=== PATIENT | male | born 1960 | race Caucasian/White ===

== ENCOUNTER 2019-03-14 06:23 | Observation (INO) | payer BC, OTHER ==
[~2019-03-14] VITALS: Ht 185.4 cm; Wt 98.7 kg
--- NOTE | 2019-03-14 06:47 | ED Cardiac General ---
History of Present Illness General Chief Complaint: Cardiac/General Problems Stated Complaint: HEART PALPATATIONS Source: patient Exam Limitations: no limitations History of Present Illness Date Seen by Provider: Mar 14, 2019 Time Seen by Provider: 06:44 Initial Comments Patient complains rapid irregular heart rate for the past 9 hours. He denies chest pain or shortness of breath. He has a history of similar symptoms when he used to smoke but quit smoking years ago. He denies stimulant use. No fevers or chills. Allergies and Home Medications Allergies Coded Allergies: No Known Drug Allergies (Unverified , 03/14/19) Home Medications Cholecalciferol (Vitamin D3) 1,000 Unit Capsule, 1,000 UNIT PO DAILY, (Reported) Naproxen Sodium 220 Mg Tablet, 220 MG PO Q8H PRN for PAIN-MILD, (Reported) Patient Home Medication List Home Medication List Reviewed: Yes Review of Systems Review of Systems Constitutional: no symptoms reported Respiratory: No Symptoms Reported Cardiovascular: Irregular Heart Rate, Palpitations Gastrointestinal: No Symptoms Reported Musculoskeletal: no symptoms reported All Other Systems Reviewed Negative Unless Noted: Yes Past Euykvxg-Jijaud-Raueqn Hx Patient Social History Alcohol Use: Denies Use Recreational Drug Use: No Smoking Status: Former Smoker Recent Foreign Travel: No Contact w/Someone Who Travel: No Physical Exam Vital Signs Vital Signs - First Documented 03/14/19 03/14/19 06:40 06:41 Temp 98.0 Pulse 137 Resp 15 B/P (MAP) 158/104 (122) Pulse Ox 100 O2 Delivery Nasal Cannula O2 Flow Rate 2.00 Capillary Refill : Height, Weight, BMI Height: '" Weight: lbs. oz. kg; BMI Method: General Appearance: No Apparent Distress, WD/WN HEENT: PERRL/EOMI, Normal ENT Inspection Neck: Supple Respiratory: Lungs Clear, Normal Breath Sounds Cardiovascular: No Edema, Tachycardia Gastrointestinal: Non Tender, Soft Extremity: Normal Inspection, Normal Range of Motion, No Calf Tenderness, No Pedal Edema Neurologic/Psychiatric: Alert, No Motor/Sensory Deficits, Normal Mood/Affect Skin: Normal Color, Warm/Dry Progress/Results/Core Measures Results/Orders Lab Results Laboratory Tests Test 03/14/19 06:40 03/14/19 07:30 Range/Units White Blood Count 5.4 4.3-11.0 10^3/uL Red Blood Count 5.57 4.35-5.85 10^6/uL Hemoglobin 16.7 13.3-17.7 G/DL Hematocrit 52 40-54 % Mean Corpuscular Volume 93 80-99 FL Mean Corpuscular Hemoglobin 30 25-34 PG Mean Corpuscular Hemoglobin Concent 33 32-36 G/DL Red Cell Distribution Width 13.0 10.0-14.5 % Platelet Count 149 130-400 10^3/uL Mean Platelet Volume 12.8 H 7.4-10.4 FL Neutrophils (%) (Auto) 44 42-75 % Lymphocytes (%) (Auto) 45 H 12-44 % Monocytes (%) (Auto) 9 0-12 % Eosinophils (%) (Auto) 1 0-10 % Basophils (%) (Auto) 1 0-10 % Neutrophils # (Auto) 2.4 1.8-7.8 X 10^3 Lymphocytes # (Auto) 2.4 1.0-4.0 X 10^3 Monocytes # (Auto) 0.5 0.0-1.0 X 10^3 Eosinophils # (Auto) 0.1 0.0-0.3 10^3/uL Basophils # (Auto) 0.1 0.0-0.1 10^3/uL Prothrombin Time 12.8 12.2-14.7 SEC INR Comment 0.9 0.8-1.4 Activated Partial Thromboplast Time 27 24-35 SEC D-Dimer < 0.27 0.00-0.49 UG/ML Sodium Level 143 135-145 MMOL/L Potassium Level 3.9 3.6-5.0 MMOL/L Chloride Level 101 98-107 MMOL/L Carbon Dioxide Level 26 21-32 MMOL/L Anion Gap 16 H 5-14 MMOL/L Blood Urea Nitrogen 18 7-18 MG/DL Creatinine 1.12 0.60-1.30 MG/DL Estimat Glomerular Filtration Rate > 60 BUN/Creatinine Ratio 16 Glucose Level 113 H 70-105 MG/DL Calcium Level 9.2 8.5-10.1 MG/DL Corrected Calcium 9.0 8.5-10.1 MG/DL Magnesium Level 2.1 1.8-2.4 MG/DL Total Bilirubin 1.1 H 0.1-1.0 MG/DL Aspartate Amino Transf (AST/SGOT) 14 5-34 U/L Alanine Aminotransferase (ALT/SGPT) 20 0-55 U/L Alkaline Phosphatase 49 40-136 U/L Troponin T 9 <=15 NG/L Total Protein 7.4 6.4-8.2 GM/DL Albumin 4.2 3.2-4.5 GM/DL Urine Opiates Screen NEGATIVE NEGATIVE Urine Oxycodone Screen NEGATIVE NEGATIVE Urine Methadone Screen NEGATIVE NEGATIVE Urine Propoxyphene Screen NEGATIVE NEGATIVE Urine Barbiturates Screen NEGATIVE NEGATIVE Ur Tricyclic Antidepressants Screen NEGATIVE NEGATIVE Urine Phencyclidine Screen NEGATIVE NEGATIVE Urine Amphetamines Screen NEGATIVE NEGATIVE Urine Methamphetamines Screen NEGATIVE NEGATIVE Urine Benzodiazepines Screen NEGATIVE NEGATIVE Urine Cocaine Screen NEGATIVE NEGATIVE Urine Cannabinoids Screen NEGATIVE NEGATIVE My Orders Orders - JIGAR RAI MD Cbc With Automated Diff (03/14/19 06:37) Magnesium (03/14/19 06:37) Chest 1 View Ap/Pa Only (03/14/19 06:37) Ekg Tracing (03/14/19 06:37) Comprehensive Metabolic Panel (03/14/19 06:37) Protime With Inr (03/14/19 06:37) Partial Thromboplastin Time (03/14/19 06:37) O2 (03/14/19 06:37) Monitor-Rhythm Ecg Trace Only (03/14/19 06:37) Ed Iv/Invasive Line Start (03/14/19 06:37) Troponin T (03/14/19 06:37) Fibrin Degradation Products (03/14/19 06:37) Drug Screen Stat (Urine) (03/14/19 06:37) Metoprolol Tartrate Injection (Lopressor (03/14/19 07:30) Metoprolol Tartrate Injection (Lopressor (03/14/19 07:30) Ns (Ivpb) (Sodium C... W/Diltiazem Iv Fo (03/14/19 07:45) Diltiazem Injection (Cardizem Injection) (03/14/19 07:45) Enoxaparin Injection (Lovenox Injection) (03/14/19 07:45) Thyroid Stimulating Hormone (03/14/19 08:09) Ekg Tracing (03/14/19 08:15) Medications Given in ED Current Medications Medications Dose Ordered Sig/Cecilia Route Start Time Stop Time Status Last Admin Dose Admin Enoxaparin Sodium 95 mg ONCE ONCE SC 03/14/19 07:45 03/14/19 07:46 DC 03/14/19 08:10 95 MG Metoprolol Tartrate 10 mg ONCE ONCE IV 03/14/19 07:30 03/14/19 07:31 DC 03/14/19 07:31 10 MG Vital Signs/I&O 03/14/19 03/14/19 06:40 06:41 Temp 98.0 Pulse 137 Resp 15 B/P (MAP) 158/104 (122) Pulse Ox 100 100 O2 Delivery Nasal Cannula Nasal Cannula O2 Flow Rate 2.00 2.00 Progress Progress Note : Time: 07:52 Progress Note Patient's heart rate down into the 90s after 10 mg Lopressor IV. We'll start C ardizem drip and Lovenox. This was discussed with Dr. Thakur and Dr. Silva who agreed to accept the patient at [facility]. EKG : EKG Time: 06:31 Rate: 137 Rhythm: A Fib/Flutter Intervals: Normal ECG Comparisson: No Previous ECG Available ECG Impression: Nonspecific Changes, Atrial Fibrillation, Atrial Fibrillation w/RVR Consults : Consulting Physician: MICHELLE THAKUR MD Consults Notes Agrees with Cardizem drip and Lovenox. Transfer to monitored bed at [facility] Departure Communication (Admissions) Time/Spoke to Admitting Phy: 07:[address] Silva who agrees to admit Patient converted to sinus rhythm at a rate is 60 after IV Lopressor. Cardizem drip was held. Lovenox was given. Transfer for cardiology care. Impression Primary Impression: Atrial fibrillation Additional Impression: tachycardia Disposition: 09 ADMITTED INPATIENT Condition: Stable Admissions Decision to Admit Reason: Admit from ER (General) Decision to Admit/Date: Mar 14, 2019 Time/Decision to Admit Time: 07:50 Departure-Patient Inst. Referrals: NO,LOCAL PHYSICIAN (PCP) Primary Care Physician JIGAR RAI MD Mar 14, 2019 06:47
--- NOTE | 2019-03-14 06:59 | Diagnostic Imaging Report ---
Patient History: Heart palpitations, tachycardia. Technique: Single frontal view of the chest Comparison: None FINDINGS: The lung volumes are normal. No focal consolidation is seen. No large pleural effusion or pneumothorax is seen. The cardiomediastinal silhouette is normal in size and contour. No acute osseous abnormality is seen. IMPRESSION: No acute pulmonary abnormality seen. Dictated by: Dictated on workstation # [id number]
[2019-03-14 07:06] LABS: HEMATOCRIT 52 % (40-54); HEMOGLOBIN 16.7 G/DL (13.3-17.7); MEAN CORPUSCULAR HEMOGLOBIN 30 PG (25-34); MEAN CORPUSCULAR HGB CONC 33 G/DL (32-36); MEAN CORPUSCULAR VOLUME 93 FL (80-99); MEAN PLATELET VOLUME 12.8 FL (7.4-10.4); PLATELET COUNT 149 10^3/uL (130-400); WHITE BLOOD COUNT 5.4 10^3/uL (4.3-11.0)
[2019-03-14 07:07] LABS: BASOPHILS # (AUTO) 0.1 10^3/uL (0.0-0.1); BASOPHILS % (AUTO) 1 % (0-10); EOSINOPHILS # (AUTO) 0.1 10^3/uL (0.0-0.3); EOSINOPHILS % (AUTO) 1 % (0-10); LYMPHOCYTES # (AUTO) 2.4 X 10^3 (1.0-4.0); LYMPHOCYTES % (AUTO) 45 % (12-44); MONOCYTES # (AUTO) 0.5 X 10^3 (0.0-1.0); MONOCYTES % (AUTO) 9 % (0-12); NEUTROPHILS # (AUTO) 2.4 X 10^3 (1.8-7.8); NEUTROPHILS % (AUTO) 44 % (42-75)
[2019-03-14 07:17] LABS: INR 0.9 (0.8-1.4); PROTHROMBIN TIME PATIENT 12.8 SEC (12.2-14.7)
[2019-03-14 07:26] LABS: ALANINE AMINOTRANSFERASE 20 U/L (0-55); ALKALINE PHOSPHATASE 49 U/L (40-136); BILIRUBIN,TOTAL 1.1 MG/DL (0.1-1.0); BUN/CREATININE RATIO 16; CALCIUM 9.2 MG/DL (8.5-10.1); CARBON DIOXIDE 26 MMOL/L (21-32); CHLORIDE 101 MMOL/L (98-107); CREATININE SERUM 1.12 MG/DL (0.60-1.30); GFR ESTIMATED > 60; GLUCOSE 113 MG/DL (70-105); MAGNESIUM 2.1 MG/DL (1.8-2.4); POTASSIUM 3.9 MMOL/L (3.6-5.0); SODIUM 143 MMOL/L (135-145)
[2019-03-14 07:27] LABS: ALBUMIN 4.2 GM/DL (3.2-4.5); TOTAL PROTEIN 7.4 GM/DL (6.4-8.2)
[2019-03-14] MEDS ORDERED: meTOprolol 5 MG/5 ML (LOPRESSOR) VIAL IV ONE ×2 (07:30)
[2019-03-14] MEDS ORDERED: ENOXAPARIN 100 MG/1 ML (LOVENOX) SYR SC ONE (07:45)
[2019-03-14] MEDS ORDERED: DILTIAZEM 25 MG/5 ML INJ (CARDIZEM) VIAL IVP ONE (07:45)
[2019-03-14] MEDS ORDERED: DILTIAZEM IV FOR DRIP 125 MG in NS (IVPB) 100 ML IV SCH (07:45)
[2019-03-14 07:46] LABS: AMPHETAMINE SCREEN, URINE NEGATIVE (NEGATIVE); BARBITURATE SCREEN URINE NEGATIVE (NEGATIVE); BENZODIAZEPINES SCREEN URINE NEGATIVE (NEGATIVE); CANNABINOID SCREEN, URINE NEGATIVE (NEGATIVE); COCAINE SCREEN URINE NEGATIVE (NEGATIVE); METHADONE STAT NEGATIVE (NEGATIVE); METHAMPHETAMINE SCREEN URINE S NEGATIVE (NEGATIVE); OPIATE SCREEN URINE NEGATIVE (NEGATIVE); OXYCODONE STAT NEGATIVE (NEGATIVE); PROPOXYPHENE STAT NEGATIVE (NEGATIVE); TRICYCLIC ANTIDEPRESSANTS SCRE NEGATIVE (NEGATIVE)
[2019-03-14 10:15] VITALS: BP 147/103
[2019-03-14 11:00] VITALS: BP 140/94
[2019-03-14] MEDS ORDERED: CATHETER FLUSH 10 ML SYR IV PRN (11:00)
[2019-03-14] MEDS ORDERED: CHOL10007 PO (11:18)
[2019-03-14] MEDS ORDERED: NAPR220T66 PO (11:18)
--- NOTE | 2019-03-14 11:18 | NUR ---
SPOKE WITH THE PATIENT ABOUT HIS MEDICATIONS. HE STATES HE NORMALLY DOES NOT TAKE ANYTHING. HE TOOK VITAMIN D YESTERDAY AND HAD PLANNED TO START TAKING IT DAILY DUE TO LEG CRAMPING HE HAS BEEN HAVING WHILE MOWING, HE WAS TOLD VITAMIN D MIGHT HELP THAT. HE TAKES AN OCCASIONAL OTC HEADACHE MEDICATION, USUALLY HE STATES IT IS ALEVE. HE ONLY TAKES ONE TABLET AT A TIME.
--- NOTE | 2019-03-14 11:27 | History & Physical-Hospitalist ---
History of Present Illness HPI/Chief Complaint Chief complaint: New onset atrial fibrillation with rapid ventricular response History of present illness: This is a 59-year-old white male that is very healthy who previously saw Dr. Sergio Souza is his primary care provider but had yet to establish with a new one since he retired 2 years ago who presented to [facility] after feeling palpitations since 10 o'clock last night. Patient was found to have new onset atrial fibrillation with rapid ventricular response of 140 heart rate. He was placed on Cardizem drip which resulted in conversion to sinus rhythm and heart rate is 64. Cardiology will be consulted and will have a full evaluation and management deemed necessary for cardiology expertise. Source: patient Exam Limitations: no limitations Date Seen 03/14/19 Time Seen by a Provider: 10:30 Attending Physician Chely Knutson DO PCP No,Local Physician Referring Physician MICHELLE SHAW MD Date of Admission Mar 14, 2019 at 08:30 Home Medications & Allergies Home Medications Reviewed patient Home Medication Reconciliation performed by pharmacy medication reconciliations fiberglass technician and/or nursing. Patients Allergies have been reviewed. Allergies Allergies Coded Allergies No Known Drug Allergies (Unverified03/14/19) Past Tbtnkpr-Nnruiw-Qbeucu Hx Past Med/Social Hx: Reviewed Nursing Past Med/Soc Hx, Reviewed and Corrections made Patient Social History Marrital Status: Employed/Student: employed ([employer]) Alcohol Use: Denies Use Recreational Drug Use: No Smoking Status: Current Everyday Smoker Type Used: Electronic/Vapor 2nd Hand Smoke Exposure: No Recent Foreign Travel: No Contact w/other who traveled: No Recent Hopitalizations: No Recent Infectious Disease Expo: No Seasonal Allergies Seasonal Allergies: No Past Medical History Cardiac: Palpitations Family History Cardiovascular disease G8 BROTHER, Onset:30's - 40 19 FATHER, Onset:40's - 50 Myocardial infarction G8 BROTHER, Onset:30's - 40 19 FATHER, Onset:40's - 50 Review of Systems Constitutional: see HPI EENTM: no symptoms reported Respiratory: short of breath Cardiovascular: palpitations Psychiatric/Neurological: See HPI All Other Systems Reviewed Negative Unless Noted: Yes Physical Exam Physical Exam Vital Signs Vital Signs - First Documented 03/14/19 03/14/19 06:40 06:41 Temp 98.0 Pulse 137 Resp 15 B/P (MAP) 158/104 (122) Pulse Ox 100 O2 Delivery Nasal Cannula O2 Flow Rate 2.00 Capillary Refill : Less Than 3 SecondsLess Than 3 Seconds Height, Weight, BMI Height: 6'1.00" Weight: 217lbs. 8.0oz. [id number]; 28.7 BMI Method:Stated General Appearance: No Apparent Distress Eyes: Right Eye Normal Inspection, Right Eye PERRL HEENT: PERRL/EOMI, TMs Normal, Normal ENT Inspection, Pharynx Normal, Moist Mucous Membranes Neck: Full Range of Motion, Normal Inspection, Non Tender Respiratory: Chest Non Tender, Lungs Clear, Normal Breath Sounds, No Accessory Muscle Use, No Respiratory Distress Cardiovascular: Regular Rate, Rhythm, No Edema, No Gallop, No JVD, No Murmur, Normal Peripheral Pulses Gastrointestinal: Normal Bowel Sounds, No Organomegaly, No Pulsatile Mass, Non Tender, Soft Back: Normal Inspection, No CVA Tenderness, No Vertebral Tenderness Extremity: Normal Capillary Refill, Normal Inspection, Normal Range of Motion, Non Tender, No Calf Tenderness, No Pedal Edema Neurologic/Psychiatric: Alert, Oriented x3, No Motor/Sensory Deficits, Normal Mood/Affect Skin: Normal Color, Warm/Dry Lymphatic: No Adenopathy Results Results/Procedures Labs Laboratory Tests 03/14/19 06:40 Patient resulted labs reviewed. Assessment/Plan Admission Diagnosis Assessment: New onset atrial fibrillation with rapid ventricular response Smoker Plan: Cardiology expertise is appreciated Admission Status: Observation Diagnosis/Problems Diagnosis/Problems (1) Atrial fibrillation Status: Acute Qualifiers: Atrial fibrillation type: unspecified Qualified Codes: I48.91 - Unspecifie d atrial fibrillation CHELY KNUTSON DO Mar 14, 2019 11:27
[2019-03-14 12:00] VITALS: BP 127/94
[2019-03-14 12:30] VITALS: BP 136/90
[2019-03-14] MEDS ORDERED: CATHETER FLUSH 10 ML SYR IV SCH (14:00)
[2019-03-14] MEDS ORDERED: APIXABAN 5 MG (ELIQUIS) TABLET PO NR (14:00)
--- NOTE | 2019-03-14 14:02 | Short Stay Summary ---
History of Present Illness History of Present Illness Reason for visit/HPI 59 years old gentleman with no significant past history started to have palpitation around 10 p.m. yesterday, waited overnight and went to the emergency room around 6 in the morning, noted to be in atrial fibrillation with rapid ventricular response, currently in sinus rhythm, converted after receiving Cardizem. Denied any active chest pain. No syncope or near syncopal episodes. No claudications, no similar episodes in the past Date of Admission Mar 14, 2019 at 08:30 Date of Discharge March 14, 2019 Time Seen by Provider: 14:00 Attending Physician Chely Silva DO Admitting Physician Jennifer,Local Physician Consult MICHELLE SHAW MD Allergies and Home Medications Allergies Coded Allergies: No Known Drug Allergies (Unverified , 03/14/19) Home Medications Cholecalciferol (Vitamin D3) 1,000 Unit Capsule, 1,000 UNIT PO DAILY, (Reported) Naproxen Sodium 220 Mg Tablet, 220 MG PO Q8H PRN for PAIN-MILD, (Reported) Patient Home Medication List Home Medication List Reviewed: Yes Past Zohxsqp-Ystgrx-Hfcpgu Hx Patient Social History Marrital Status: Employed/Student: employed ([employer]) Alcohol Use: Denies Use Recreational Drug Use: No Smoking Status: Current Everyday Smoker Type Used: Electronic/Vapor 2nd Hand Smoke Exposure: No Recent Foreign Travel: No Contact w/other who traveled: No Recent Hopitalizations: No Recent Infectious Disease Expo: No Seasonal Allergies Seasonal Allergies: No Surgeries No Respiratory No Cardiovascular Yes Palpitations Neurological No Genitourinary No Gastrointestinal No Musculoskeletal No Endocrine History of Endocrine Disorders: No HEENT History of HEENT Disorders: No Cancer No Psychosocial History of Psychiatric Problem: No Integumentary History of Skin or Integumenta: No Family Medical History Family Hx: Cardiovascular disease G8 BROTHER, Onset:30s - 19 FATHER, Onset:40's - 50 Myocardial infarction G8 BROTHER, Onset:30s - 40 19 FATHER, Onset:40's - 50 Review of Systems Constitutional: see HPI EENTM: see HPI Respiratory: see HPI; No cough, No dyspnea on exertion, No hemoptysis, No orthopnea, No phlegm, No short of breath, No stridor, No wheezing, No other Cardiovascular: see HPI; No chest pain, No edema, No Hx of Intervention; palpitations; No syncope, No vascular heart diseas, No other Gastrointestinal: see HPI Genitourinary: see HPI Musculoskeletal: see HPI Skin: see HPI Psychiatric/Neurological: No Symptoms Reported, See HPI Physical Exam Vital Signs Vital Signs - First Documented 03/14/19 03/14/19 06:40 06:41 Temp 98.0 Pulse 137 Resp 15 B/P (MAP) 158/104 (122) Pulse Ox 100 O2 Delivery Nasal Cannula O2 Flow Rate 2.00 Capillary Refill : Less Than 3 SecondsLess Than 3 Seconds Height, Weight, BMI Height: 6'1.00" Weight: 217lbs. 8.0oz. 98.140602ci; 28.7 BMI Method:Stated General Appearance: No Apparent Distress, WD/WN Eyes: Bilateral Eye Normal Inspection, Bilateral Eye PERRL, Bilateral Eye EOMI HEENT: PERRL/EOMI, TMs Normal, Normal ENT Inspection, Pharynx Normal Neck: Full Range of Motion, Normal Inspection, Non Tender, Supple, Carotid Bruit Respiratory: Chest Non Tender, Lungs Clear, Normal Breath Sounds, No Accessory Muscle Use, No Respiratory Distress Cardiovascular: Regular Rate, Rhythm, No Edema, No Gallop, No JVD, No Murmur, Normal Peripheral Pulses Gastrointestinal: Normal Bowel Sounds, No Organomegaly, No Pulsatile Mass, Non Tender, Soft Back: Normal Inspection, No CVA Tenderness, No Vertebral Tenderness Extremity: Normal Capillary Refill, Normal Inspection, Normal Range of Motion, Non Tender, No Calf Tenderness, No Pedal Edema Neurologic/Psychiatric: Alert, Oriented x3, No Motor/Sensory Deficits, Normal Mood/Affect Skin: Normal Color, Warm/Dry Lymphatic: No Adenopathy Short Stay Diagnosis Discharge Diagnosis-Short Stay Admission Diagnosis: paroxysmal atrial fibrillation Tachycardia Hypertension Tobaccoism Final Discharge Diagnosis: paroxysmal atrial fibrillation Tachycardia Hypertension Tobaccoism Conclusion Labs Laboratory Tests 03/14/19 06:40: White Blood Count 5.4, Red Blood Count 5.57, Hemoglobin 16.7, Hematocrit 52, Mean Corpuscular Volume 93, Mean Corpuscular Hemoglobin 30, Mean Corpuscular Hemoglobin Concent 33, Red Cell Distribution Width 13.0, Platelet Count 149, Mean Platelet Volume 12.8H, Neutrophils (%) (Auto) 44, Lymphocytes (%) (Auto) 45H, Monocytes (%) (Auto) 9, Eosinophils (%) (Auto) 1, Basophils (%) (Auto) 1, Neutrophils # (Auto) 2.4, Lymphocytes # (Auto) 2.4, Monocytes # (Auto) 0.5, Eosinophils # (Auto) 0.1, Basophils # (Auto) 0.1, Prothrombin Time 12.8, INR Comment 0.9, Activated Partial Thromboplast Time 27, D-Dimer < 0.27, Sodium Level 143, Potassium Level 3.9, Chloride Level 101, Carbon Dioxide Level 26, Anion Gap 16H, Blood Urea Nitrogen 18, Creatinine 1.12, Estimat Glomerular Filtration Rate > 60, BUN/Creatinine Ratio 16, Glucose Level 113H, Calcium Level 9.2, Corrected Calcium 9.0, Magnesium Level 2.1, Total Bilirubin 1.1H, Aspartate Amino Transf (AST/SGOT) 14, Alanine Aminotransferase (ALT/SGPT) 20, Alkaline Phosphatase 49, Troponin T 9, Total Protein 7.4, Albumin 4.2 03/14/19 07:30: Urine Opiates Screen NEGATIVE, Urine Oxycodone Screen NEGATIVE, Urine Methadone Screen NEGATIVE, Urine Propoxyphene Screen NEGATIVE, Urine Barbiturates Screen NEGATIVE, Ur Tricyclic Antidepressants Screen NEGATIVE, Urine Phencyclidine Screen NEGATIVE, Urine Amphetamines Screen NEGATIVE, Urine Methamphetamines Screen NEGATIVE, Urine Benzodiazepines Screen NEGATIVE, Urine Cocaine Screen NEGATIVE, Urine Cannabinoids Screen NEGATIVE Conclusion/Plan paroxysmal atrial fibrillation with tachycardia, converted to sinus rhythm after receiving Cardizem, currently in sinus rhythm. Asymptomatic, no similar epi sodes in the past. Noted to be hypertensive which put him at slightly higher risk of thromboembolism. I will start him on Eliquis and beta blockers and monitor tolerance and response Hypertension, patient will be started on Toprol-XL 25 mg daily and we'll arrange for follow-up as an outpatient Tobaccoism, educated on smoking cessation MICHELLE SHAW MD Mar 14, 2019 14:02
[2019-03-14] MEDS ORDERED: METO-351 PO (14:03)
[2019-03-14] MEDS ORDERED: APIX5TAB PO (14:03)
== END 2019-03-14 14:30 | disposition home or self-care (01) ==
LOC: ER FS 06:27 → ICU 08:30
PROVIDERS: ADMIT Internal Medicine; ATTEND Internal Medicine
DX: I48.0 Paroxysmal atrial fibrillation (principal); I10 Essential (primary) hypertension; R00.2 Palpitations; F17.290 Nicotine dependence, other tobacco product, uncomplicated; Z79.899 Other long term (current) drug therapy
CPT/HCPCS: 36415; 71045; 80053; 80306; 83735; 84443; 84484; 85025; 85379; 85610; 85730; 93005; 93041; 93306; 96372; 96374

== ENCOUNTER → 2019-05-07 | Outpatient (CLI) | payer BC ==
[~2019-05-07] VITALS: Ht 185.4 cm; Wt 103.9 kg
[~2019-05-07] MED LIST: APIX5TAB PO; CATHETER FLUSH 10 ML SYR IV PRN; CHOL10007 PO; METO-351 PO; NAPR220T66 PO
[2019-05-07 14:31] VITALS: BP 175/98
--- NOTE | 2019-05-08 00:35 | STRESS TEST ---
DATE OF SERVICE: 05/07/2019 EXERCISE MYOVIEW STRESS TEST REPORT REFERRING PHYSICIAN: BRENDA Pringle Baseline heart rate is 51. Baseline blood pressure 149/83. Baseline EKG is sinus rhythm with no ischemic changes. In summary, the patient was injected with 9.06 mCi of technetium-99 Myoview and the resting images were obtained. Then, the patient started exercising with a baseline heart rate, blood pressure and EKG mentioned above. The patient was able to exercise for a total of 10 minutes and 30 seconds on standard Tao protocol. With peak exercise level, EKG was showing [address] depression in II, III, aVF, V4, V5 and V6. Blood pressure was 199/97 reaching a peak level of 228/108. During recovery, heart rate and blood pressure returned to baseline. EKG returned to baseline. The resting and stress images were reviewed and compared in the short axis, horizontal long axis, and vertical long axis views. Review of the images showed good radiotracer uptake with no significant ischemia or infarction. SSS is 4, SDS 2, TID value 0.9. On the gated images, the left ventricle appeared to be in normal size with normal contractility. Calculated ejection fraction 56%. CONCLUSION: 1. Excellent exercise tolerance, a total of 10 minutes 30 seconds on standard Tao protocol, total of 11.9 METS achieving 96% of maximum expected heart rate. 2. Hypertensive response to exercise with peak blood pressure 228/108 returned to baseline during recovery. 3. EKG changes in II, III, aVF. Overall, nondiagnostic. Returned to baseline during recovery. 4. No ischemia or infarction on SPECT images. 5. Normal left ventricular size with normal contractility. Calculated ejection fraction 56%. Job ID: [id number] DocumentID: [id number] Dictated Date: 05/07/2019 19:57:56 Cartridge Feeder Date: 05/08/2019 00:35:03 Dictated By: MICHELLE SHAW MD
== END ==
LOC: CARD 11:58
PROVIDERS: ATTEND Physician Assistant
DX: I48.0 Paroxysmal atrial fibrillation (principal); I10 Essential (primary) hypertension; I73.9 Peripheral vascular disease, unspecified; E66.9 Obesity, unspecified; Z72.0 Tobacco use
CPT/HCPCS: 78452; 93017

== ENCOUNTER → 2020-05-11 | Outpatient (CLI) | payer BC ==
[~2020-05-11] MED LIST changes: -CATHETER FLUSH 10 ML SYR IV PRN
[2020-05-11 10:03] LABS: POTASSIUM 4.6 MMOL/L (3.6-5.0); SODIUM 141 MMOL/L (135-145)
[2020-05-11 10:04] LABS: ALANINE AMINOTRANSFERASE 28 U/L (0-55); ALBUMIN 3.9 GM/DL (3.2-4.5); ALKALINE PHOSPHATASE 42 U/L (40-136); BUN/CREATININE RATIO 15; CALCIUM 9.1 MG/DL (8.5-10.1); CARBON DIOXIDE 28 MMOL/L (21-32); CHLORIDE 106 MMOL/L (98-107); CREATININE SERUM 1.03 MG/DL (0.60-1.30); GFR ESTIMATED > 60; GLUCOSE 100 MG/DL (70-105); TOTAL PROTEIN 6.6 GM/DL (6.4-8.2)
[2020-05-11 14:49] LABS: CHOLESTEROL 198 MG/DL (< 200); HDL CHOLESTEROL 36 MG/DL (40-60); TRIGLYCERIDES 126 MG/DL (<150); VLDL CHOLESTEROL 25 MG/DL (5-40)
== END ==
LOC: LAB FS 08:18
PROVIDERS: ATTEND Internal Medicine Cardiovascular Disease
DX: E78.2 Mixed hyperlipidemia (principal)
CPT/HCPCS: 36415; 80053; 80061

== ENCOUNTER → 2021-05-05 | Outpatient (CLI) | payer BC ==
[2021-05-05 07:32] LABS: BILIRUBIN,TOTAL 1.2 MG/DL (0.1-1.0); CALCIUM 9.3 MG/DL (8.5-10.1); CREATININE SERUM 1.06 MG/DL (0.60-1.30); POTASSIUM 4.1 MMOL/L (3.6-5.0)
[2021-05-05 07:33] LABS: ALBUMIN 3.9 GM/DL (3.2-4.5); TOTAL PROTEIN 7.1 GM/DL (6.4-8.2)
== END ==
LOC: LAB FS 06:34
PROVIDERS: ATTEND Physician Assistant
DX: E78.2 Mixed hyperlipidemia (principal)
CPT/HCPCS: 36415; 80053; 80061

== ENCOUNTER → 2021-12-08 | Outpatient (CLI) | payer BC | LOC: CARDFS 13:45 | PROVIDERS: ATTEND Internal Medicine Cardiovascular Disease | DX: I10 Essential (primary) hypertension (principal); I25.10 Atherosclerotic heart disease of native coronary artery without angina pectoris | CPT/HCPCS: 93306 ==

== ENCOUNTER → 2022-11-14 | Outpatient (CLI) | payer BC ==
[2022-11-14 09:20] LABS: CALCIUM 9.2 MG/DL (8.5-10.1); CREATININE SERUM 1.06 MG/DL (0.60-1.30); POTASSIUM 4.5 MMOL/L (3.6-5.0)
[2022-11-14 09:21] LABS: ALBUMIN 4.1 GM/DL (3.2-4.5); TOTAL PROTEIN 6.9 GM/DL (6.4-8.2)
== END ==
LOC: LAB FS 07:47
PROVIDERS: ATTEND Internal Medicine Cardiovascular Disease
DX: E78.2 Mixed hyperlipidemia (principal); I48.91 Unspecified atrial fibrillation; I10 Essential (primary) hypertension; I34.0 Nonrheumatic mitral (valve) insufficiency; I25.10 Atherosclerotic heart disease of native coronary artery without angina pectoris; R00.2 Palpitations
CPT/HCPCS: 36415; 80053; 80061

== ENCOUNTER 2023-08-19 08:14 | Emergency (ER) | payer BC ==
[~2023-08-19] VITALS: Ht 185 cm; Wt 100.0 kg
[2023-08-19 08:33] LABS: BASOPHILS # (AUTO) 0.1 10^3/uL (0.0-0.1); BASOPHILS % (AUTO) 1 % (0-10); EOSINOPHILS # (AUTO) 0.1 10^3/uL (0.0-0.3); EOSINOPHILS % (AUTO) 2 % (0-10); HEMATOCRIT 50 % (40-54); HEMOGLOBIN 16.5 g/dL (13.3-17.7); LYMPHOCYTES # (AUTO) 2.2 10^3/uL (1.0-4.0); LYMPHOCYTES % (AUTO) 32 % (12-44); MEAN CORPUSCULAR HEMOGLOBIN 31 pg (25-34); MEAN CORPUSCULAR HGB CONC 33 g/dL (32-36); MEAN CORPUSCULAR VOLUME 94 fL (80-99); MEAN PLATELET VOLUME 12.3 fL (9.0-12.2); MONOCYTES # (AUTO) 0.6 10^3/uL (0.0-1.0); MONOCYTES % (AUTO) 9 % (0-12); NEUTROPHILS # (AUTO) 3.9 10^3/uL (1.8-7.8); NEUTROPHILS % (AUTO) 57 % (42-75); PLATELET COUNT 185 10^3/uL (130-400); WHITE BLOOD COUNT 6.8 10^3/uL (4.3-11.0)
[2023-08-19] MEDS ORDERED: NS IV 1000 ML 1,000 ML IV STA (08:42)
[2023-08-19 08:45] LABS: CARBON DIOXIDE 24 MMOL/L (21-32); CHLORIDE 103 MMOL/L (98-107); INR 0.9 (0.8-1.4); POTASSIUM 3.8 MMOL/L (3.6-5.0); PROTHROMBIN TIME PATIENT 12.7 SEC (12.2-14.7); SODIUM 136 MMOL/L (135-145)
[2023-08-19 08:46] LABS: BILIRUBIN,TOTAL 1.8 MG/DL (0.1-1.0); MAGNESIUM 2.2 MG/DL (1.6-2.4)
--- NOTE | 2023-08-19 08:49 | ED Cardiac General ---
History of Present Illness General Chief Complaint: Cardiac/General Problems Stated Complaint: A-FIB; ELEV HR Source: patient, old records, spouse History of Present Illness Date Seen by Provider: Aug 19, 2023 Time Seen by Provider: 08:23 Initial Comments 63-year-old male presenting with complaints of feeling like his heart was racing and anxious. He has a history of atrial fibrillation and felt like he went into atrial fibrillation last night around 9 PM. He took extra of his medication to help with it and it seemed to calm things down. When he woke up this morning he was feeling okay but as he got up and started moving around his heart started racing again. At home his watch told him that his heart rate was getting up to 160-170. He did take an extra dose of his medicine again this morning. He also started taking some Eliquis last night since his heart rate was feeling like he was back in atrial fibrillation. He had recently been told that he could stop the Eliquis and just use aspirin by his senior instrumentation engineer, Dr. Thakur. He denies any allergies to medications. He is unsure what medicine he is taking for his atrial fibrillation. He states he does not have a primary care physician and only the senior instrumentation engineer. He denies having fever, chills, chest pain, shortness of breath, nausea, vomiting, pain with urination, diarrhea. He does feel lighthea ded and anxious with the atrial fibrillation. He states that this happened on August 02 as well and he felt very anxious at that time. He has not followed up with Dr. Thakur since the episode on August 02. Then it happened again last night and this morning. Severity: moderate Activities at Onset: rest NTG SL TEST WORKER: No ASA po TEST WORKER: Yes Associated Systoms: No Chest Pain, No Cough, No Diaphoresis, No Fever/Chills, No Headaches, No Loss of Appetite, No Malaise, No Nausea/Vomiting, No Rash, No Seizure, No Shortness of Air, No Syncope, No Weakness Allergies and Home Medications Allergies Coded Allergies: No Known Drug Allergies (Unverified , 03/14/19) Patient Home Medication List Home Medication List Reviewed: Yes Apixaban (Eliquis) 5 Mg Tablet, 5 MG PO BID Prescribed by: SUJEY BARRERA on 08/19/23 0920 Discontinued Medications Diltiazem HCl (Diltiazem 24Hr ER) 360 Mg Cap.er.24h, 360 MG PO DAILY Prescribed by: SUJEY BARRERA on 08/19/23 0920 Metoprolol Succinate (Toprol Xl) 25 Mg Tab.er.24h, 25 MG PO DAILY Prescribed by: MICHELLE THAKUR on 03/14/19 1403 Review of Systems Review of Systems Constitutional: No chills, No diaphoresis, No fever EENTM: No Symptoms Reported Respiratory: Denies Cough, Denies Shortness of Air Cardiovascular: Denies Chest Pain; Irregular Heart Rate, Lightheadedness, Palpitations; Denies Syncope Gastrointestinal: Denies Abdominal Pain, Denies Constipated, Denies Diarrhea, Denies Nausea, Denies Vomiting Genitourinary: Denies Burning Musculoskeletal: no symptoms reported Skin: no symptoms reported Psychiatric/Neurological: Anxiety; Denies Headache Past Qncdiyn-Ibwenh-Arbtcl Hx Patient Social History Tobacco Use?: Yes Tobacco type used: Cigarettes Smoking Status: Current Someday Smoker Substance use?: No Alcohol Use?: No Seasonal Allergies Seasonal Allergies: No Past Medical History Surgery/Hospitalization HX: Paroxysmal atrial fibrillation Surgeries: No Respiratory: No Cardiac: Yes Palpitations Neurological: No Genitourinary: No Gastrointestinal: No Musculoskeletal: No Endocrine: No HEENT: No Cancer: No Psychosocial: No Integumentary: No Family Medical History Cardiovascular disease G8 BROTHER, Onset:30's - 40 19 FATHER, Onset:40's - 50 Myocardial infarction G8 BROTHER, Onset:30's - 40 19 FATHER, Onset:40's - 50 Physical Exam Vital Signs Vital Signs - First Documented 08/19/23 08/19/23 08:39 09:43 Temp 35.5 Pulse 168 Resp 20 B/P (MAP) 111/79 (90) Pulse Ox 100 O2 Delivery Room Air Capillary Refill : Height, Weight, BMI Height: 6'1.00" Weight: 229lbs. 0.0oz. 103.884705ig; 30.2 BMI Method:Stated General Appearance: No Apparent Distress, WD/WN HEENT: PERRL/EOMI, Pharynx Normal Neck: Full Range of Motion, Normal Inspection, Non Tender, Supple Respiratory: Chest Non Tender, Lungs Clear, Normal Breath Sounds Cardiovascular: No Murmur, Normal Peripheral Pulses, Irregularly Irregular, Tachycardia (160 initially but while patient was resting in the bed his heart rate spontaneously came down to 97 bpm and appeared to be in a sinus rhythm) Gastrointestinal: Normal Bowel Sounds, No Pulsatile Mass, Non Tender, Soft Rectal: Deferred Extremity: Normal Capillary Refill, Normal Inspection, No Pedal Edema Neurologic/Psychiatric: Alert, Oriented x3, derrick car operator II-XII Norm as Tested Skin: Normal Color, Warm/Dry Progress/Results/Core Measures Results/Orders Lab Results Laboratory Tests Test 08/19/23 08:28 08/19/23 09:22 Range/Units White Blood Count 6.8 4.3-11.0 10^3/uL Red Blood Count 5.35 4.30-5.52 10^6/uL Hemoglobin 16.5 13.3-17.7 g/dL Hematocrit 50 40-54 % Mean Corpuscular Volume 94 80-99 fL Mean Corpuscular Hemoglobin 31 25-34 pg Mean Corpuscular Hemoglobin Concent 33 32-36 g/dL Red Cell Distribution Width 13.1 10.0-14.5 % Platelet Count 185 130-400 10^3/uL Mean Platelet Volume 12.3 H 9.0-12.2 fL Immature Granulocyte % (Auto) 0 % Neutrophils (%) (Auto) 57 42-75 % Lymphocytes (%) (Auto) 32 12-44 % Monocytes (%) (Auto) 9 0-12 % Eosinophils (%) (Auto) 2 0-10 % Basophils (%) (Auto) 1 0-10 % Neutrophils # (Auto) 3.9 1.8-7.8 10^3/uL Lymphocytes # (Auto) 2.2 1.0-4.0 10^3/uL Monocytes # (Auto) 0.6 0.0-1.0 10^3/uL Eosinophils # (Auto) 0.1 0.0-0.3 10^3/uL Basophils # (Auto) 0.1 0.0-0.1 10^3/uL Immature Granulocyte # (Auto) 0.0 0.0-0.1 10^3/uL Prothrombin Time 12.7 12.2-14.7 SEC INR Comment 0.9 0.8-1.4 Activated Partial Thromboplast Time 27 24-35 SEC Sodium Level 136 135-145 MMOL/L Potassium Level 3.8 3.6-5.0 MMOL/L Chloride Level 103 98-107 MMOL/L Carbon Dioxide Level 24 21-32 MMOL/L Anion Gap 9 5-14 MMOL/L Blood Urea Nitrogen 16 7-18 MG/DL Creatinine 1.25 0.60-1.30 MG/DL Estimat Glomerular Filtration Rate 65 BUN/Creatinine Ratio 13 Glucose Level 117 H 70-105 MG/DL Calcium Level 9.0 8.5-10.1 MG/DL Corrected Calcium 9.1 8.5-10.1 MG/DL Magnesium Level 2.2 1.6-2.4 MG/DL Total Bilirubin 1.8 H 0.1-1.0 MG/DL Aspartate Amino Transf (AST/SGOT) 18 5-34 U/L Alanine Aminotransferase (ALT/SGPT) 14 0-55 U/L Alkaline Phosphatase 55 40-136 U/L Troponin I < 0.30 <0.30 NG/ML Pro-B-Type Natriuretic Peptide 625.5 H <125.0 PG/ML Total Protein 7.0 6.4-8.2 GM/DL Albumin 3.9 3.2-4.5 GM/DL Lipase 18 8-78 U/L Urine Color YELLOW Urine Clarity CLEAR Urine pH 6.0 5-9 Urine Specific [place] <=1.005 1.016-1.022 Urine Protein NEGATIVE NEGATIVE Urine Glucose (UA) NEGATIVE NEGATIVE Urine Ketones TRACE H NEGATIVE Urine Nitrite NEGATIVE NEGATIVE Urine Bilirubin NEGATIVE NEGATIVE Urine Urobilinogen 0.2 < = 1.0 MG/DL Urine Leukocyte Esterase NEGATIVE NEGATIVE Urine RBC (Auto) NEGATIVE NEGATIVE Urine RBC NONE /HPF Urine WBC RARE /HPF Urine Squamous Epithelial Cells 5-10 /HPF Urine Crystals NONE /LPF Urine Bacteria TRACE /HPF Urine Casts NONE /LPF Urine Mucus NEGATIVE /LPF Urine Culture Indicated NO My Orders Orders - SUJEY BARRERA MD Cbc And Automated Diff (08/19/23 08:23) Magnesium (08/19/23 08:23) Ekg Tracing (08/19/23 08:23) Comprehensive Metabolic Panel (08/19/23 08:23) Protime With Inr (08/19/23 08:23) Partial Thromboplastin Time (08/19/23 08:23) O2 (08/19/23 08:23) Monitor-Rhythm Ecg Trace Only (08/19/23 08:23) Ed Iv/Invasive Line Start (08/19/23 08:23) Lipase (08/19/23 08:23) Troponin I Fs (08/19/23 08:23) Probnp Fs (08/19/23 08:23) Ua Culture If Indicated (08/19/23 08:23) Chest 1 View Ap/Pa Only (08/19/23 08:42) Ns Iv 1000 Ml (Ns Iv 1000 Ml) (08/19/23 08:42) Vital Signs/I&O 08/19/23 08/19/23 08:39 09:43 Temp 35.5 Pulse 168 62 Resp 20 14 B/P (MAP) 111/79 (90) 106/71 Pulse Ox 100 99 O2 Delivery Room Air Progress Progress Note #1: Progress Note Differential diagnosis includes paroxysmal atrial fibrillation, dehydration, electrolyte imbalance, acute coronary syndrome, myocardial infarction, heart failure. We will establish peripheral IV access and send labs for complete blood count, comprehensive metabolic profile, lipase, coagulation factors, troponin, proBNP. 1 view chest x-ray to look for pathology in his chest. Electrocardiogram to look for signs of ischemia and document his heart rate and rhythm. Placed on cardiac monitor and storage bin tender and my initial interpretation was that he was in atrial fibrillation with RVR and heart rate up to 170. While he was being hooked up for his electrocardiogram and IV was being established his heart rate spontaneously came down to under 100 bpm and appeared to be more of a sinus rhythm with occasional PVC. Is a did not have any specific trigger for his atrial fibrillation and had already taken extra of his medications at home we will defer any cardiac meds at the moment. His blood pressure was low normal at 111/79. Oxygen saturation is 100% on room air. He is breathing approximately 12-14 times a minute. Will order urinalysis as well to look for hydration. Administer normal saline 1 L IV fluid bolus in case that might be contributing to his atrial fibrillation. Progress Note #2: Time: 09:11 Progress Note Complete blood count did not show any acute abnormalities as he had a normal white blood cell count of 6.8. Hemoglobin was 16.5. His comprehensive metabolic profile did not show any acute electrolyte abnormality to account for his paroxysmal atrial fibrillation. His troponin was less than 0.3. Magnesium was normal at 2.2. proBNP was slightly elevated to 625.5. On my personal interpretation of his 1 view chest x-ray had no acute infiltrate or acute process. Patient continues to be hemodynamically stable with heart rate in the 90s some sinus rhythm with blood pressure 113/79. Will increase his diltiazem from 240 mg extended release once a day to 360 mg extended release once a day. Continue with the losartan 100 mg a day. Have him call cardiology in the morning to get follow-up with Dr. Thakur and further direction on medications and treatment. In the meantime continue on his Eliquis until he can follow-up with cardiology. 929 I spoke with quality control microbiology supervisor [employer], Dr. Nugent. I reviewed patient history and presentation today. I reviewed the patients labs and vital signs. Currently he has heart rate in the 60s and sinus rhythm. I discussed with him my plan of trying to increase the patient's medication dose. He was reluctant to do that at this point and suggested that the patient remain on his current dosing of 240 mg of diltiazem and 100 mg of losartan. He suggested if the patient had recurrent episodes that he would need to come to [place] so he could be admitted and see cardiology there as he may need a different medication. I have reviewed this with the patient and his spouse. He opted to stay at the 240 mg a day for the diltiazem and the 100 mg losartan. I advised him to stay on the Eliquis 5 mg twice daily at least until he can follow-up with Dr. Thakur. It sounds like Dr. Thakur will not be back in the clinic until 27 August. I encouraged him to call the clinic in the morning to try and arrange a follow-up appointment for next week. In the meantime if he has a recurrent episode he could try taking the 120 mg diltiazem that he has to increase his dose up to 360 and see if that calms it back down. But as suggested by the on-call senior instrumentation engineer if he is having recurrent episodes he should go to [place] to be admitted and see cardiology. Initial ECG Impression Date: Aug 19, 2023 Initial ECG Impression Time: 08:30 Initial ECG Rate: 92 Initial ECG Rhythm: Normal Sinus Initial ECG Impression: 1st Degree AV Block Initial ECG Comparisson: Changed (03/14/2019 initial electrocardiogram which showed atrial fibrillation with rapid ventricular rate in the 130s. A second electrocardiogram from the same day had his heart rate down in the 60s and sinus rhythm.) Comment My initial interpretation and review of the electrocardiogram is sinus rhythm with first-degree AV block at a rate of 92 bpm. DE interval 256 ms. There is moderate intraventricular conduction delay. There is no acute ST elevation. There is some artifact on the tracing. QT interval 330 ms with a QTc interval 380 ms. Comparing to previous electrocardiograms in the system from March 14, 2019 he did have improvement from the atrial fibrillation with RVR in the 130s that was done initially on that date and his heart rate is a little faster and now showing a first-degree AV block compared to the normal sinus rhythm in the 60s from later in the same day. Diagnostic Imaging Diagonstic Imaging: Xray Plain Films/CT/US/NM/MRI: chest Comments NAME: RASHAAD GUILLEN [facility] REC#: [id number] PT STATUS: REG ER : 1960 PHYSICIAN: SUJEY BARRERA MD ADMIT DATE: 08/19/23/ER FS Signed Date of Exam:08/19/23 CHEST 1 VIEW AP/PA ONLY INDICATION: Atrial fibrillation, palpitations Frontal chest obtained at 9:00 a.m. Heart and mediastinal silhouette are normal in appearance. The lungs are clear. There is no pneumothorax or pleural fluid. IMPRESSION: Negative chest. Dictated by: Dictated on workstation # [id number] Dict: 08/19/23939 Trans: 08/19/23948 CV [id number] Interpreted by: DOREEN GOMEZ MD Electronically signed by: DOREEN GOMEZ MD 08/19/23948 Reviewed: Reviewed by Me Departure Impression Primary Impression: Paroxysmal atrial fibrillation Disposition: 01 HOME, SELF-CARE Condition: Stable Departure-Patient Inst. Decision time for Depature: 09:56 Referrals: MICHELLE THAKUR MD NO,LOCAL PHYSICIAN (PCP) Primary Care Physician [facility] Patient Instructions: Atrial Fibrillation and Atrial Flutter ED, Going Home on Blood Thinners Add. Discharge Instructions: Continue taking the Eliquis until you can follow-up with Dr. Thakur. Call in the morning to arrange follow-up with Dr. Thakur in cardiology. Keep taking your Diltiazem 240 mg dose and the Losartan [address] Nugent, the quality control microbiology supervisor [employer] for Dr. Thakur, recommended that if you have recurrent episodes of the atrial fibrillation that you should be admitted to [place] so he could see you and adjust medicine or change your medicine to get better control of your atrial fibrillation. All discharge instructions reviewed with patient and/or family. Voiced understanding. Scripts Apixaban (Eliquis) 5 Mg Tablet 5 MG PO BID for 30 Days, #60 TAB 0 Refills Prov: SUJEY BARRERA MD 08/19/23 SUJEY BARRERA MD Aug 19, 2023 08:48
[2023-08-19 08:52] LABS: ALANINE AMINOTRANSFERASE 14 U/L (0-55); ALBUMIN 3.9 GM/DL (3.2-4.5); ALKALINE PHOSPHATASE 55 U/L (40-136); BUN/CREATININE RATIO 13; CREATININE SERUM 1.25 MG/DL (0.60-1.30); GFR ESTIMATED 65; GLUCOSE 117 MG/DL (70-105); LIPASE 18 U/L (8-78)
[2023-08-19] MEDS ORDERED: DILT360C36 PO (09:20)
[2023-08-19] MEDS ORDERED: APIX5TAB PO (09:20)
[2023-08-19 09:28] LABS: BILIRUBIN,URINE NEGATIVE (NEGATIVE); CLARITY,URINE CLEAR; COLOR,URINE YELLOW; GLUCOSE, URINE (UA) NEGATIVE (NEGATIVE); KETONES,URINE TRACE (NEGATIVE); LEUKOCYTE ESTERASE ,URINE NEGATIVE (NEGATIVE); NITRITE,URINE NEGATIVE (NEGATIVE); PROTEIN,URINE NEGATIVE (NEGATIVE)
[2023-08-19 09:31] LABS: BACTERIA,URINE TRACE /HPF; WBC,URINE RARE /HPF
[2023-08-19 09:43] VITALS: BP 106/71
--- NOTE | 2023-08-19 09:44 | Diagnostic Imaging Report ---
INDICATION: Atrial fibrillation, palpitations Frontal chest obtained at 9:00 a.m. Heart and mediastinal silhouette are normal in appearance. The lungs are clear. There is no pneumothorax or pleural fluid. IMPRESSION: Negative chest. Dictated by: Dictated on workstation # [id number]
== END 2023-08-19 10:02 | disposition home or self-care (01) ==
LOC: EDUNIT# 08:14 → ER FS 08:15
DX: I48.0 Paroxysmal atrial fibrillation (principal); F17.210 Nicotine dependence, cigarettes, uncomplicated
CPT/HCPCS: 36415; 71045; 80053; 81000; 83690; 83735; 83880; 84484; 85025; 85610; 85730; 93005